=== PATIENT | female | born 1975 | race Caucasian/White ===

== ENCOUNTER 2021-01-24 22:50 | Emergency (ER) | payer MEDICAID ==
[~2021-01-24] VITALS: Ht 170.2 cm; Wt 63.6 kg
--- NOTE | 2021-01-25 00:03 | NUR ---
pt to room from [facility]
--- NOTE | 2021-01-25 00:16 | NUR ---
FIRST CONTACT: PATIENT REPORT SHE STARTED SHAKING "A COUPLE DAYS AGO" AND HAS NOT BEEN ABLE TO STOP. PATIENT AMBULATED TO ROOM WITH A STEADY GAIT. SHE ENDORCES DRINKING 1L OF "THE HARD STUFF" EVERY DAY.
[2021-01-25] MEDS ORDERED: THIAMINE 100 MG in SODIUM CHLORIDE 0.9% 50 ML IVPB ONE (00:30)
[2021-01-25] MEDS ORDERED: SODIUM CHLORIDE 0.9% 1,000ML IVBOLUS ONE (00:30)
[2021-01-25] MEDS ORDERED: SODIUM CHLORIDE FLUSH 10ML SYR IVF ONE (00:30)
[2021-01-25] MEDS ORDERED: ONDANSETRON 2MG/ML, 2ML IVPush ONE (00:30)
[2021-01-25] MEDS ORDERED: LORazepam 2 MG/ML, 1ML IVPush PRN (00:30)
[2021-01-25 00:57] LABS: BASOPHILS % (AUTO) 1 % (0-1); EOSINOPHILS % (AUTO) 1 % (1-7); LYMPHOCYTES % (AUTO) 25 % (22-44); MEAN CORPUSCULAR HEMOGLOBIN 39.7 pg (27.0-34.8); MONOCYTES % (AUTO) 14 % (2-9); NEUTROPHILS % (AUTO) 60 % (42-75); PLATELET COUNT 155 x10^3/uL (130-400); RED BLOOD COUNT 3.34 x10^6/uL (3.82-5.3); RED CELL DISTRIBUTION WIDTH 15.8 % (9.6-15.2)
[2021-01-25] MEDS ORDERED: ONDANSETRON 2MG/ML, 2ML ONE (00:59)
[2021-01-25] MEDS ORDERED: PLEASE ENTER ALLERGIES MC SCH (01:00)
[2021-01-25 01:01] LABS: ALANINE AMINOTRANSFERASE 178 U/L (12-78); ALBUMIN 3.8 g/dL (3.4-5.0); ANION GAP 7 mmol/L (5-15); CALCIUM 8.9 mg/dL (8.5-10.1); CHLORIDE 101 mmol/L (98-107); CREATININE 0.74 mg/dL (0.55-1.02)
[2021-01-25 01:04] LABS: ALKALINE PHOSPHATASE 173 U/L (45-117); BILIRUBIN,TOTAL 1.7 mg/dL (0.2-1.0); TOTAL PROTEIN 8.2 g/dL (6.4-8.2)
--- NOTE | 2021-01-25 01:30 | NUR ---
DELAY IN MEDICATION ADMISTRATION DUE TO DIFFICULTY STARTING IV AND EKG BEING DONE AT TIME MEDS WERE DUE. ONCE IV WAS STARTED MEDICATIONS WERE IMMEDIATELY GIVEN.
[2021-01-25] MEDS ORDERED: LORazepam 2 MG/ML, 1ML ONE (01:33)
[2021-01-25 02:25] VITALS: BP 126/93
--- NOTE | 2021-01-25 02:38 | NUR ---
Patient given discharge instructions and they have confirmed that they understand the instructions. Patient ambulatory with steady gait. NAD, all questions answered appropriately, denies additional needs at this time. No personal belongings left in room after discharge.
== END 2021-01-25 02:54 | disposition home or self-care (01) ==
LOC: ED 01-25 02:00
DX: F10.239 Alcohol dependence with withdrawal, unspecified (principal); R94.5 Abnormal results of liver function studies; R10.12 Left upper quadrant pain; Z87.891 Personal history of nicotine dependence; Y90.0 Blood alcohol level of less than 20 mg/100 ml
CPT/HCPCS: 36415; 80053; 80320; 83690; 85025; 93005; 96365; 96375; 99284; J2060; J2405; J3411; J7030; G0480